=== PATIENT | female | born 1945 | race Caucasian/White ===

== ENCOUNTER 2017-11-24 07:39 | Emergency (ER) | payer MEDICARE ==
[2014-09-19 10:55] VITALS: BMI 20.3
[~2017-11-24 07:39] MED LIST: ALIGN4 MG PO; ASPIRIN325 MG PO; DEPAKOTE250 MG PO; GALZIN50 MG PO; HYCODAN SYRUP480 ML OR; LIPITOR20 MG PO; LOPRESSOR25 MG PO; MULTIPLE VITAMI1 TA1 PO; NEXIUM40 MG PO; OS-CAL500 MG PO; PRILOSEC20 MG PO; RESTORIL15 MG PO; TRILEPTAL300 MG PO; XANAX0.25 MG PO; ZINC SULFATE 2220 MG PO; ZOLOFT50 MG PO
== END 2017-11-24 09:28 | disposition home or self-care (01) ==
LOC: D.ER 07:39
DX: J02.9 Acute pharyngitis, unspecified (principal); J01.90 Acute sinusitis, unspecified; J04.0 Acute laryngitis

== ENCOUNTER → 2018-07-11 19:46 | Outpatient (CLI) | payer MEDICARE ==
[2014-09-19 10:55] VITALS: BMI 20.3
== END | disposition home or self-care (01) ==
LOC: D.MAMMO 15:30
DX: Z12.31 Encounter for screening mammogram for malignant neoplasm of breast (principal)